=== PATIENT | male | born 1980 | race Hispanic/Latino ===

== ENCOUNTER 2018-09-09 09:02 | Inpatient (IN) | payer BC ==
[2018-09-09] MEDS ORDERED: Lidocaine 1% w/Epinephrine 1:100K 20 ML VIAL ONE ×2 (10:25→10:30)
[2018-09-09] MEDS ORDERED: Clindamycin/D5W 900 mg/50 ml Premix Bag ONE (10:30)
[2018-09-09 11:04] LABS: #Eosinphils 0.1 thou/uL (0.0-0.7); #Lymphocytes 1.5 thou/uL (1.20-3.40); #Monocytes 0.9 thou/uL (0.11-0.59); #Neutrophils 9.6 thou/uL (1.40-6.50); %Basophils 0.3 % (0.0-1.0); %Eosinophils 0.8 % (0.0-10.0); %Lymphocytes 12.5 % (21.0-51.0); %Monocytes 7.3 % (0.0-10.0); %Neutrophils 79.2 % (42.0-75.0); Hemoglobin 10.7 g/dL (14.0-18.0); Mean Corpuscular HGB CONC 32.6 g/dL (32.0-36.0); Mean Corpuscular Hemoglobin 28.3 pg (27.0-31.0); Mean Corpuscular Volume 86.7 fL (78.0-98.0); Mean Platelet Volume 7.3 fL (7.4-10.4); Platelet Count 331 thou/uL (130-400); RBC Distribution Width 11.9 % (11.5-14.5); White Blood Cell (WBC) Count 12.2 thou/uL (4.8-10.8)
[2018-09-09 11:22] LABS: ALT (SGPT) 20 U/L (8-55); AST (SGOT) 11 U/L (5-34); Albumin 2.7 g/dL (3.5-5.0); Alkaline Phosphatase 92 U/L (40-150); Anion Gap 9 mmol/L (10-20); BUN (Urea Nitrogen) 24 mg/dL (8.9-20.6); Bilirubin, Total 0.3 mg/dL (0.2-1.2); Calc. Creatinine Clearance 0 mL/min (70-130); Carbon Dioxide 30 mmol/L (22-29); Chloride 98 mmol/L (98-107); Estimated GFR-MDRD 49; Glucose 376 mg/dL (70-105); Potassium 5.2 mmol/L (3.5-5.1); Protein, Total 6.7 g/dL (6.0-8.3); Sodium 132 mmol/L (136-145)
[2018-09-09] MEDS ORDERED: Sodium Chloride 0.9% 100 ML ONE (13:28)
[2018-09-09] MEDS ORDERED: Piperacillin/Tazobactam 4.5 GM VIAL ONE (13:28)
[2018-09-09] MEDS ORDERED: Labetalol HCl 100 MG/20 ML VIAL ONE (14:04)
[2018-09-09] MEDS ORDERED: Dextrose 50% Abboject 50 ML SYRINGE SLOW IVP PRN (16:31)
[2018-09-09] MEDS ORDERED: Eucerin (Mineral Oil/Petrolatum,White) 30 gm Jar TOP PRN (16:31)
[2018-09-09] MEDS ORDERED: HYDROcodone/Acetaminophen 5/325 mg Tablet PO PRN (16:31)
[2018-09-09] MEDS ORDERED: Bisacodyl 10 MG SUPP PR PRN (16:31)
[2018-09-09] MEDS ORDERED: HumaLOG 300 UNITS/3 ML VIAL SC PRN ×2 (16:31)
[2018-09-09] MEDS ORDERED: Calcium Carbonate 500 MG ChewTAB PO PRN (16:31)
[2018-09-09] MEDS ORDERED: Artificial Tear Sol 15 ML BOT EA EYE PRN (16:31)
[2018-09-09] MEDS ORDERED: hydrALAZINE 20 MG/ML VIAL SLOW IVP PRN (16:31)
[2018-09-09] MEDS ORDERED: Cepastat Lozenges 1 LOZ PO PRN (16:31)
[2018-09-09] MEDS ORDERED: Loratadine 10 MG TAB PO PRN (16:31)
[2018-09-09] MEDS ORDERED: Sodium Chloride 0.65% Nasal 44 ML BOT EA NARE PRN (16:31)
[2018-09-09] MEDS ORDERED: Diabetic Tussin 200 MG/10 ML UDCUP PO PRN (16:31)
[2018-09-09] MEDS ORDERED: Morphine 4 MG/ML VIAL SLOW IVP PRN (16:31)
[2018-09-09] MEDS ORDERED: Ondansetron ODT 4 MG TAB PO PRN (16:31)
[2018-09-09] MEDS ORDERED: Dextrose 5% in Water 1,000 ML IV PRN (16:31)
[2018-09-09] MEDS ORDERED: Zolpidem Tartrate 5 MG TAB PO PRN (16:31)
[2018-09-09] MEDS ORDERED: Ondansetron PF 4 MG/2 ML Vial IVP PRN (16:31)
[2018-09-09] MEDS ORDERED: Loperamide HCl 2 MG CAP PO PRN (16:31)
[2018-09-09] MEDS ORDERED: Senokot S 8.6-50 MG TAB PO PRN (16:31)
--- NOTE | 2018-09-09 17:03 | HP ---
PRIMARY CARE PHYSICIAN: Dr. Collins Restrepo. REASON FOR ADMISSION: Left upper thigh cellulitis with abscess, sepsis, acute kidney injury, uncontrolled diabetes. HISTORY OF PRESENT ILLNESS: A 37-year-old male, who has underlying history of diabetes, who presented to emergency room with left thigh swelling, erythema, fever. The patient reports that four days ago, he noticed little bit bump and lump in that region over left side lateral aspect upper thigh at waistline, which was initially quarter size and gradually gotten worse. The patient tried to squeeze and drain pus by himself, but that was getting bigger and surrounding area was started becoming red, erythematous, indurated, and more swollen. He started having fever. Yesterday, he was not able to finish his work. He has to go home because of throbbing pain. His pain was about 10/10 in intensity. Today, he went to Urgent Care, but because of fever, they did not do I and D and they advised him to go to emergency room. Today, in the emergency room, the patient was febrile with a temperature of 100.2, and he had I and D done in the emergency room. The patient is being admitted for sepsis as well as surrounding cellulitis. The patient reports that he has diabetes history and he was following primary care physician. He was prescribed metformin. He was not tolerating that medication and that is why dose of metformin was reduced and for last one month, the patient was not taking any medication. The patient was also eating junky food and he increased his weight 25 to 30 pounds. The patient reports that he has white coat hypertension. Whenever he goes to doctor's office, his blood pressure remains high, but whenever he checked by himself, his blood pressure remains normal at home. He denies any trauma or insect bite. He denies any previous similar infection in the past. He denies any UTI symptoms. He denies any constipation, diarrhea, melena, or hematochezia. He denies any chest pain, palpitation, or syncope. PAST MEDICAL HISTORY: Obesity, diabetes type 2, white coat hypertension. PAST SURGICAL HISTORY: Knee surgery. PAST PSYCHIATRIC HISTORY: Reviewed and negative. SOCIAL HISTORY: The patient drinks alcohol socially. He denies any smoking. He denies any other illicit drug abuse. He is working in [employer]. FAMILY HISTORY: No family history of coronary artery disease, stroke, or cancer. ALLERGIES: NO KNOWN DRUG ALLERGIES. CURRENT HOME MEDICATIONS: Multivitamin one tablet p.o. daily. REVIEW OF SYSTEMS: CONSTITUTIONAL: Negative for weight loss or gain, ability to conduct usual activities. SKIN: Negative for rash, itching. EYES: Negative for double vision, pain. ENT/MOUTH: Negative for nose bleeding, neck stiffness, pain, tenderness. CARDIOVASCULAR: Negative for palpitations, dyspnea on exertion, orthopnea. RESPIRATORY: Negative for shortness of breath, wheezing, cough, hemoptysis, fever or night sweats. GASTROINTESTINAL: Negative for poor appetite, abdominal pain, heartburn, nausea, vomiting, constipation, or diarrhea. GENITOURINARY: Negative for urgency, frequency, dysuria, nocturia. MUSCULOSKELETAL: Negative for pain, swelling. NEUROLOGIC/PSYCHIATRIC: Negative for anxiety, depression. ALLERGY/IMMUNOLOGIC: Negative for skin rash, bleeding tendency. Please see my HPI for pertinent positive and negative. All other review of systems reviewed and negative except as mentioned in the HPI. EMERGENCY ROOM COURSE: The patient had I and D done. Labetalol 10 mg IV push given, Zosyn 4.5 g, vancomycin 1 g, clindamycin 900 mg given, IV fluid given. PHYSICAL EXAMINATION: VITAL SIGNS: On arrival, blood pressure 158/91, pulse 108, respiratory rate 18, temperature 100.2, saturation 96% on room air. Weight 136.5 kg. GENERAL: The patient is currently alert, awake, febrile, tachycardic. No obvious acute distress. HEENT: Head; normocephalic, atraumatic. Eyes; pupils round, reactive to light. Extraocular muscle intact. ENT; oropharynx within normal limits. Moist mucous membranes. No oral lesion. No pharyngeal erythema. No exudate. NECK: Supple. No JVD. No thyromegaly. No carotid bruit. No jugular venous distention. LUNGS: Clear to auscultation without any rhonchi or rales. CARDIAC: S1, S2 regular. Tachycardia. No murmur. No gallop. No rub. ABDOMEN: Morbid obesity. Bowel sounds present. Nontender, nondistended. No organomegaly. No mass. No suprapubic tenderness. BACK: Unremarkable. No CVA tenderness. EXTREMITIES: Upper extremities; passive movement of all joints is normal. Lower extremities; no edema, good distal pulsation. SKIN: The patient does have large area of cellulitis with central abscess on left lateral hip area, status post I and D. Surrounding induration, warmth, tenderness noted. PSYCHIATRIC: Normal affect. SIGNIFICANT LABORATORY DATA: CBC; WBC 12.2, hemoglobin 10.7, platelet 331. BMP; sodium 132, potassium 5.2, carbon dioxide 30, chloride 98, BUN 24, creatinine 1.60, glucose 376, calcium 9.0. Lactic acid 0.9. LFT: AST 11, ALT 20, alkaline phosphatase 92, albumin 2.7. ASSESSMENT AND PLAN: 1. Cellulitis and abscess, left lateral thigh, status post I and D. The patient has surrounding cellulitis, induration, erythema, tenderness along with acute kidney injury and sepsis criteria with uncontrolled diabetes, will require admission in the hospital for IV antibiotic therapy. We will cover Staphylococcus aureus with vancomycin and gram-negative christal as well as anaerobes with Zosyn. The patient will be given IV fluid and we will monitor clinical response. Wound Care Team will be consulted for wound care over abscess site. 2. Sepsis with systemic inflammatory response syndrome criteria. The patient is having leukocytosis, fever, tachycardia, acute kidney injury. He meets sepsis with acute organ dysfunction criteria from soft tissue infection in the presence of diabetes. The patient is already covered for Staph aureus, gram-negative christal, and anaerobes with vancomycin and Zosyn. We will follow up on culture result and change antibiotic therapy accordingly. 3. Acute kidney failure. The patient will be given IV fluid with NS and we will repeat BMP tomorrow. 4. Mild hyponatremia and hyperkalemia, likely due to renal failure and pseudohyponatremia. We will repeat BMP tomorrow. 5. Anemia, normocytic, normochromic. The patient will be given ferrous sulfate 325 mg p.o. daily and multivitamin one tablet p.o. daily. 6. Morbid obesity. Dietary education given, weight loss education given. Healthy lifestyle measure discussed with the patient. 7. Diabetes, type 2. We will start insulin as per sliding scale protocol. We will start glyburide 5 mg p.o. daily. Diabetic diet will be given. 8. Hypertension. Once renal function improves, then we will monitor the patient's blood pressure and we will start lisinopril. Upon discharge, pain control, morphine p.r.n. basis, [place] p.r.n. basis. 9. Deep venous thrombosis prophylaxis, Lovenox 40 mg subcu daily. 10. Gastrointestinal prophylaxis, Pepcid 20 mg p.o. b.i.d. CODE STATUS: The patient is full code. The patient does not have any surrogate decision maker. DISPOSITION PLAN: Based on clinical course, we are expecting the patient's stay in hospital more than two midnights. Plan of care discussed with the patient in detail. Job ID: [id number]
[2018-09-09 17:51] VITALS: BMI 40.6
[2018-09-09] MEDS: Sodium Chloride 0.9% 1,000 ML IV SCH (18:01)
[2018-09-09] MEDS: Piperacillin/Tazobactam 3.375 GM in Sodium Chloride 0.9% 100 ML IVPB SCH (20:48)
[2018-09-09] MEDS: Famotidine 20 MG TAB PO SCH (20:49)
[2018-09-09 21:16] LABS: Bilirubin Negative (Negative); Blood, Urine Large (Negative); Clarity CLEAR (Clear); Glucose, Urine (Dipstick) >=1000 mg/dL (Negative); Leukocyte Negative (Negative); Nitrite Negative (Negative); Protein, Urine (Dipstick) > or equal to 300 mg/dL (Neg-Trace); Specific Gravity, Urine 1.025 (1.002-1.036); Urobilinogen 0.2 mg/dL (0.2-1.0)
[2018-09-09 21:18] LABS: Bacteria/HPF None Seen HPF (None Seen); Hyaline Casts/LPF 4-6 HYALINE CAST LPF (0-3 Hyaline); Pathc Cast-AUWi Flag 1.01 (0-2.49); RBC/HPF GREATER THAN 50-TNTC HPF (0-3); WBC/HPF 0-3 HPF (0-3)
[2018-09-09] MEDS: Acetaminophen 325 MG TAB PO PRN (22:52)
[2018-09-10] MEDS: Piperacillin/Tazobactam 3.375 GM in Sodium Chloride 0.9% 100 ML IVPB SCH ×4 (03:27→20:00)
[2018-09-10] MEDS: Sodium Chloride 0.9% 1,000 ML IV SCH (03:28)
[2018-09-10 05:41] LABS: #Basophils 0.1 thou/uL (0.0-0.2); #Eosinphils 0.2 thou/uL (0.0-0.7); #Monocytes 0.9 thou/uL (0.11-0.59); #Neutrophils 7.1 thou/uL (1.40-6.50); %Basophils 0.7 % (0.0-1.0); %Eosinophils 1.9 % (0.0-10.0); %Lymphocytes 19.4 % (21.0-51.0); %Neutrophils 69.2 % (42.0-75.0); Hemoglobin 9.6 g/dL (14.0-18.0); Mean Corpuscular HGB CONC 32.4 g/dL (32.0-36.0); Mean Corpuscular Hemoglobin 28.4 pg (27.0-31.0); Mean Corpuscular Volume 87.8 fL (78.0-98.0); Mean Platelet Volume 7.2 fL (7.4-10.4); Platelet Count 308 thou/uL (130-400); Red Blood Cell (RBC) Count 3.36 mill/uL (4.70-6.10); White Blood Cell (WBC) Count 10.3 thou/uL (4.8-10.8)
[2018-09-10 05:48] LABS: Anion Gap 10 mmol/L (10-20); BUN (Urea Nitrogen) 25 mg/dL (8.9-20.6); CRP (Inflammatory) 12.12 mg/dL (= or < 0.5); Calc. Creatinine Clearance 116 mL/min (70-130); Calcium 8.1 mg/dL (7.8-10.44); Carbon Dioxide 27 mmol/L (22-29); Chloride 101 mmol/L (98-107); Estimated GFR-MDRD 46; Glucose 298 mg/dL (70-105); Potassium 4.9 mmol/L (3.5-5.1); Sodium 133 mmol/L (136-145)
[2018-09-10 05:52] LABS: Hemoglobin A1c 14.4 % (4.0-6.0)
[2018-09-10 08:09] LABS: Creatinine, Urine 102.03 mg/dL (63-166)
[2018-09-10] MEDS: Saccharomyces boulardii 250 MG CAP PO SCH (08:37)
[2018-09-10] MEDS: Multivitamin W/ Minerals 1 TAB PO SCH (08:38)
[2018-09-10] MEDS: Famotidine 20 MG TAB PO SCH ×2 (08:38→20:00)
[2018-09-10] MEDS: glyBURIDE 5 MG TAB PO SCH (08:38)
[2018-09-10] MEDS: Ferrous Sulfate 325 MG TAB PO SCH (08:38)
[2018-09-10] MEDS: Enoxaparin Sodium 40 MG/0.4 ML SYRINGE SC SCH (08:40)
--- NOTE | 2018-09-10 09:56 | PDOC.PN ---
- Subjective Encounter Start Date: 09/10/18 Encounter Start Time: 07:50 Patient seen and examined. No new complaints. No overnight events - Objective Resuscitation Status - Order Detail: 09/09/18 14:40 Resuscitation Status Routine Resuscitation Status: FULL: Full Resuscitation MAR Reviewed: Yes Vital Signs & Weight: Vital Signs (12 hours) Temp Pulse Resp BP Pulse Ox 09/10/18 08:39 99.3 F 88 18 135/88 98 09/10/18 08:00 98 09/10/18 05:19 98.8 F 90 20 129/81 98 09/10/18 00:00 99.0 F 92 20 129/81 97 Weight Weight 300 lb I&O: 09/09/18 09/10/18 09/11/18 06:59 06:59 06:59 Intake Total 2039 Balance 2039 Result Diagrams: 09/10/18 04:41 09/10/18 04:41 Additional Labs: Accuchecks 09/10/18 09/09/18 05:18 20:32 POC Glucose 274 H 316 H Phys Exam - Physical Examination Constitutional: NAD HEENT: PERRLA, moist MMs, sclera anicteric Neck: no JVD, supple Respiratory: no wheezing, no rales, no rhonchi Cardiovascular: RRR, no significant murmur, no rub Gastrointestinal: soft, non-tender, no distention, positive bowel sounds Musculoskeletal: no edema, pulses present abscess and cellulitis improving Neurological: non-focal, normal sensation Lymphatic: no nodes Psychiatric: normal affect, A&O x 3 Skin: no rash, normal turgor Dx/Plan (1) Cellulitis and abscess of other specified site Code(s): L03.818 - CELLULITIS OF OTHER SITES; L02.818 - CUTANEOUS ABSCESS OF OTHER SITES Status: Acute (2) Sepsis Code(s): A41.9 - SEPSIS, UNSPECIFIED ORGANISM Status: Acute (3) Anemia, normocytic normochromic Code(s): D64.9 - ANEMIA, UNSPECIFIED Status: Chronic (4) CKD (chronic kidney disease) stage 3, GFR 30-59 ml/min Code(s): N18.3 - CHRONIC KIDNEY DISEASE, STAGE 3 (MODERATE) Status: Chronic (5) Diabetes type 2, uncontrolled Code(s): E11.65 - TYPE 2 DIABETES MELLITUS WITH HYPERGLYCEMIA Status: Chronic (6) Dyslipidemia Code(s): E78.5 - HYPERLIPIDEMIA, UNSPECIFIED Status: Chronic (7) Hypertension Code(s): I10 - ESSENTIAL (PRIMARY) HYPERTENSION Status: Chronic (8) Morbid obesity with BMI of 40.0-44.9, adult Code(s): E66.01 - MORBID (SEVERE) OBESITY DUE TO EXCESS CALORIES; Z68.41 - BODY MASS INDEX (BMI) 40.0-44.9, ADULT Status: Chronic (9) Diabetic nephropathy Status: Acute (10) Nephrotic syndrome Code(s): N04.9 - NEPHROTIC SYNDROME WITH UNSPECIFIED MORPHOLOGIC CHANGES Status: Acute - Plan cont current plan of care, continue antibiotics * continue current treatment * continue vancomycin and zosyn * medication reviewed as below * symptomatic treatment * follow culture * consult dietary * I have educated about diabetes, diet. Review of Systems - Review of Systems ENT: negative: Ear Pain, Ear Discharge, Nose Pain, Nose Discharge, Nose Congestion, Mouth Pain, Mouth Swelling, Throat Pain, Throat Swelling, Other Respiratory: negative: Cough, Dry, Shortness of Breath, Hemoptysis, SOB with Excertion, Pleuritic Pain, Sputum, Wheezing Cardiovascular: negative: chest pain, palpitations, orthopnea, paroxysmal nocturnal dyspnea, edema, light headedness, other Gastrointestinal: negative: Nausea, Vomiting, Abdominal Pain, Diarrhea, Constipation, Melena, Hematochezia, Other Genitourinary: negative: Dysuria, Frequency, Incontinence, Hematuria, Retention , Other Musculoskeletal: negative: Neck Pain, Shoulder Pain, Arm Pain, Back Pain, Hand Pain, Leg Pain, Foot Pain, Other Skin: negative: Rash, Lesions, Elvin, Bruising, Other - Medications/Allergies Allergies/Adverse Reactions: Allergies Allergy/AdvReac Type Severity Reaction Status Date / Time No Known Drug Allergies Allergy Verified 09/09/18 16:36 Medications: Current Medications Acetaminophen (Tylenol) 650 mg PO Q4H PRN PRN Reason: Headache/Fever/Mild Pain (1-3) Last Admin: 09/09/18 22:52 Dose: 650 mg Hydrocodone Bitart/Acetaminophen ([place] 5/325) 1 tab PO Q4H PRN PRN Reason: Moderate Pain (4-6) Artificial Tears (Tears Renewed 15ml Bottle) 2 drop EA EYE PRN PRN PRN Reason: Dry Eyes Bisacodyl (Dulcolax) 10 mg [place] DAILYPRN PRN PRN Reason: Constipation Calcium Carbonate (Tums) 1,000 mg PO Q4H PRN PRN Reason: Heartburn or Indigestion Dextrose/Water (Dextrose 50%) 25 gm SLOW IVP PRN PRN PRN Reason: Hypoglycemia Enoxaparin Sodium (Lovenox) 40 mg SC 0900 [facility] Last Admin: 09/10/18 08:40 Dose: 40 mg Famotidine (Pepcid) 20 mg PO BID [facility] Last Admin: 09/10/18 08:38 Dose: 20 mg Ferrous Sulfate (Feosol) 325 mg PO [facility] Last Admin: 09/10/18 08:38 Dose: 325 mg Glucagon (Glucagon) 1 mg IM PRN PRN PRN Reason: Hypoglycemia Glyburide (Diabeta) 5 mg PO [facility] Last Admin: 09/10/18 08:38 Dose: 5 mg Guaifenesin (Robitussin Sf) 200 mg PO Q4H PRN PRN Reason: Cough Hydralazine HCl (Apresoline) 10 mg SLOW IVP Q4H PRN PRN Reason: SBP > 180 and HR < 70 Dextrose/Water (D5w) 1,000 mls @ 0 mls/hr IV .Q0M PRN PRN Reason: Hypoglycemia Piperacillin Sod/Tazobactam (Sod 3.375 gm/ Sodium Chloride) 100 mls @ 200 mls/ hr IVPB 0200,0800,1400,2000 [facility] Last Admin: 09/10/18 08:36 Dose: 100 mls Vancomycin HCl 2 gm/ Sodium (Chloride) 500 mls @ 250 mls/hr IVPB 0800,1999 [facility] Last Admin: 09/10/18 08:47 Dose: 500 mls Insulin Human Lispro (Humalog) 0 units SC .AGGRESSIVE SLIDING PRN PRN Reason: Aggressive Correctional Scale Last Admin: 09/10/18 06:21 Dose: 9 unit Insulin Human Lispro (Humalog) 0 units SC .BEDTIME SLIDING SC PRN PRN Reason: Bedtime Correctional Scale Iron/Minerals/Multivitamins (Theragran M) 1 tab PO DAILY [facility] Last Admin: 09/10/18 08:38 Dose: 1 tab Loperamide HCl (Imodium) 2 mg PO PRN PRN PRN Reason: Diarrhea/Loose Stools Loratadine (Claritin) 10 mg PO DAILYPRN PRN PRN Reason: Sinus Symptoms Mineral Oil/White Petrolatum (Eucerin Cream) 0 gm TOP BIDPRN PRN PRN Reason: Dry Skin Miscellaneous Medication (Pharmacy To Dose) 1 each IVPB PRN PRN PRN Reason: Pharmacy to dose Morphine Sulfate (Morphine) 4 mg SLOW IVP Q4H PRN PRN Reason: Pain Ondansetron HCl (Zofran Odt) 4 mg PO Q6H PRN PRN Reason: Nausea/Vomiting Ondansetron HCl (Zofran) 4 mg IVP Q6H PRN PRN Reason: Nausea/Vomiting Saccharomyces Boulardii (Florastor) 250 mg PO DAILY [facility] Last Admin: 09/10/18 08:37 Dose: 250 mg Senna/Docusate Sodium (Senokot S) 2 tab PO BID PRN PRN Reason: Constipation Sodium Chloride ([place] Nasal [place] 0.65%) 0 ml EA NARE QIDPRN PRN PRN Reason: Nasal Congestion Throat Lozenges (Cepastat Lozenges) 1 avi PO Q2H PRN PRN Reason: Sore Throat Zolpidem Tartrate (Ambien) 5 mg PO HSPRN PRN PRN Reason: Insomnia
[2018-09-10] MEDS: Acetaminophen 325 MG TAB PO PRN (20:38)
[2018-09-11] MEDS: Piperacillin/Tazobactam 3.375 GM in Sodium Chloride 0.9% 100 ML IVPB SCH ×4 (01:47→19:47)
[2018-09-11] MEDS: glyBURIDE 5 MG TAB PO SCH (07:40)
[2018-09-11] MEDS: Ferrous Sulfate 325 MG TAB PO SCH (07:41)
[2018-09-11] MEDS: Saccharomyces boulardii 250 MG CAP PO SCH (07:41)
[2018-09-11] MEDS: Multivitamin W/ Minerals 1 TAB PO SCH (07:41)
[2018-09-11] MEDS: Famotidine 20 MG TAB PO SCH ×2 (07:41→19:47)
[2018-09-11] MEDS: Enoxaparin Sodium 40 MG/0.4 ML SYRINGE SC SCH (07:43)
[2018-09-11 08:16] LABS: Vancomycin, Trough 45.2 ug/mL
[2018-09-11] MEDS ORDERED: glyBURIDE 5 MG TAB PO SCH ×2 (09:00→21:00)
[2018-09-11] MEDS ORDERED: Lisinopril 5 MG TAB PO SCH (09:00)
--- NOTE | 2018-09-11 11:23 | PDOC.PN ---
- Subjective Encounter Start Date: 09/11/18 Encounter Start Time: 08:40 Patient seen and examined. No new complaints. No overnight events - Objective Resuscitation Status - Order Detail: 09/09/18 14:40 Resuscitation Status Routine Resuscitation Status: FULL: Full Resuscitation MAR Reviewed: Yes Vital Signs & Weight: Vital Signs (12 hours) Temp Pulse Resp BP BP BP Pulse Ox 09/11/18 09:23 89 155/94 H 09/11/18 08:00 98 09/11/18 07:50 98.1 F 89 19 155/94 H 98 09/11/18 04:57 98.4 F 89 20 134/88 98 09/11/18 00:00 99.0 F 89 20 129/84 94 L Weight Admit Weight 300 lb Weight 300 lb I&O: 09/10/18 09/11/18 09/12/18 06:59 06:59 06:59 Intake Total 2039 Balance 2039 Result Diagrams: 09/10/18 04:41 09/10/18 04:41 Additional Labs: Accuchecks 09/11/18 09/10/18 09/10/18 04:56 20:23 17:06 POC Glucose 78 113 H 67 L 09/10/18 11:43 POC Glucose 193 H Phys Exam - Physical Examination Constitutional: NAD HEENT: PERRLA, moist MMs, sclera anicteric Neck: no JVD, supple Respiratory: no wheezing, no rales, no rhonchi Cardiovascular: RRR, no significant murmur, no rub Gastrointestinal: soft, non-tender, no distention, positive bowel sounds Musculoskeletal: no edema, pulses present Neurological: non-focal, normal sensation, moves all 4 limbs Psychiatric: normal affect, A&O x 3 Skin: normal turgor Deviation from normal: abscess with cellulitis improving, still has indurated skin Dx/Plan (1) Cellulitis and abscess of other specified site Code(s): L03.818 - CELLULITIS OF OTHER SITES; L02.818 - CUTANEOUS ABSCESS OF OTHER SITES Status: Acute (2) Sepsis Code(s): A41.9 - SEPSIS, UNSPECIFIED ORGANISM Status: Acute (3) Anemia, normocytic normochromic Code(s): D64.9 - ANEMIA, UNSPECIFIED Status: Chronic (4) CKD (chronic kidney disease) stage 3, GFR 30-59 ml/min Code(s): N18.3 - CHRONIC KIDNEY DISEASE, STAGE 3 (MODERATE) Status: Chronic (5) Diabetes type 2, uncontrolled Code(s): E11.65 - TYPE 2 DIABETES MELLITUS WITH HYPERGLYCEMIA Status: Chronic (6) Dyslipidemia Code(s): E78.5 - HYPERLIPIDEMIA, UNSPECIFIED Status: Chronic (7) Hypertension Code(s): I10 - ESSENTIAL (PRIMARY) HYPERTENSION Status: Chronic (8) Morbid obesity with BMI of 40.0-44.9, adult Code(s): E66.01 - MORBID (SEVERE) OBESITY DUE TO EXCESS CALORIES; Z68.41 - BODY MASS INDEX (BMI) 40.0-44.9, ADULT Status: Chronic (9) Diabetic nephropathy Status: Acute (10) Nephrotic syndrome Code(s): N04.9 - NEPHROTIC SYNDROME WITH UNSPECIFIED MORPHOLOGIC CHANGES Status: Acute - Plan cont current plan of care, continue antibiotics * add lisinopril * continue vancomycin and zosyn * wound care * pain controlled * increase glyburide 5 mg po bid * medication reviewed as below * symptomatic treatment. Review of Systems - Review of Systems ENT: negative: Ear Pain, Ear Discharge, Nose Pain, Nose Discharge, Nose Congestion, Mouth Pain, Mouth Swelling, Throat Pain, Throat Swelling, Other Respiratory: negative: Cough, Dry, Shortness of Breath, Hemoptysis, SOB with Excertion, Pleuritic Pain, Sputum, Wheezing Cardiovascular: negative: chest pain, palpitations, orthopnea, paroxysmal nocturnal dyspnea, edema, light headedness, other Gastrointestinal: negative: Nausea, Vomiting, Abdominal Pain, Diarrhea, Constipation, Melena, Hematochezia, Other Genitourinary: negative: Dysuria, Frequency, Incontinence, Hematuria, Retention , Other Musculoskeletal: negative: Neck Pain, Shoulder Pain, Arm Pain, Back Pain, Hand Pain, Leg Pain, Foot Pain, Other Skin: negative: Rash, Lesions, Elvin, Bruising, Other - Medications/Allergies Allergies/Adverse Reactions: Allergies Allergy/AdvReac Type Severity Reaction Status Date / Time No Known Drug Allergies Allergy Verified 09/09/18 16:36 Medications: Current Medications Acetaminophen (Tylenol) 650 mg PO Q4H PRN PRN Reason: Headache/Fever/Mild Pain (1-3) Last Admin: 09/10/18 20:38 Dose: 650 mg Hydrocodone Bitart/Acetaminophen ([place] 5/325) 1 tab PO Q4H PRN PRN Reason: Moderate Pain (4-6) Artificial Tears (Tears Renewed 15ml Bottle) 2 drop EA EYE PRN PRN PRN Reason: Dry Eyes Aspirin (Aspirin Chewable) 81 mg PO DAILY [facility] Last Admin: 09/11/18 09:22 Dose: 81 mg Bisacodyl (Dulcolax) 10 mg [place] DAILYPRN PRN PRN Reason: Constipation Calcium Carbonate (Tums) 1,000 mg PO Q4H PRN PRN Reason: Heartburn or Indigestion Dextrose/Water (Dextrose 50%) 25 gm SLOW IVP PRN PRN PRN Reason: Hypoglycemia Enoxaparin Sodium (Lovenox) 40 mg SC 0900 [facility] Last Admin: 09/11/18 07:43 Dose: Not Given Famotidine (Pepcid) 20 mg PO BID [facility] Last Admin: 09/11/18 07:41 Dose: 20 mg Ferrous Sulfate (Feosol) 325 [facility] Last Admin: 09/11/18 07:41 Dose: 325 mg Glucagon (Glucagon) 1 mg IM PRN PRN PRN Reason: Hypoglycemia Glyburide (Diabeta) 5 mg PO BID [facility] Last Admin: 09/11/18 09:06 Dose: Not Given Guaifenesin (Robitussin Sf) 200 mg PO Q4H PRN PRN Reason: Cough Hydralazine HCl (Apresoline) 10 mg SLOW IVP Q4H PRN PRN Reason: SBP > 180 and HR < 70 Dextrose/Water (D5w) 1,000 mls @ 0 mls/hr IV .Q0M PRN PRN Reason: Hypoglycemia Piperacillin Sod/Tazobactam (Sod 3.375 gm/ Sodium Chloride) 100 mls @ 200 mls/ hr IVPB 0200,0800,1400,2000 [facility] Last Admin: 09/11/18 07:37 Dose: 100 mls Vancomycin HCl 2 gm/ Sodium (Chloride) 500 mls @ 250 mls/hr IVPB 2000 [facility] Insulin Human Lispro (Humalog) 0 units SC .AGGRESSIVE SLIDING PRN PRN Reason: Aggressive Correctional Scale Last Admin: 09/10/18 06:21 Dose: 9 unit Insulin Human Lispro (Humalog) 0 units SC .BEDTIME SLIDING SC PRN PRN Reason: Bedtime Correctional Scale Iron/Minerals/Multivitamins (Theragran M) 1 tab PO DAILY [facility] Last Admin: 09/11/18 07:41 Dose: 1 tab Lisinopril (Zestril) 5 mg PO DAILY [facility] Last Admin: 09/11/18 09:23 Dose: 5 mg Loperamide HCl (Imodium) 2 mg PO PRN PRN PRN Reason: Diarrhea/Loose Stools Loratadine (Claritin) 10 mg PO DAILYPRN PRN PRN Reason: Sinus Symptoms Mineral Oil/White Petrolatum (Eucerin Cream) 0 gm TOP BIDPRN PRN PRN Reason: Dry Skin Miscellaneous Medication (Pharmacy To Dose) 1 each IVPB PRN PRN PRN Reason: Pharmacy to dose Morphine Sulfate (Morphine) 4 mg SLOW IVP Q4H PRN PRN Reason: Pain Ondansetron HCl (Zofran Odt) 4 mg PO Q6H PRN PRN Reason: Nausea/Vomiting Ondansetron HCl (Zofran) 4 mg IVP Q6H PRN PRN Reason: Nausea/Vomiting Saccharomyces Boulardii (Florastor) 250 mg PO DAILY [facility] Last Admin: 09/11/18 07:41 Dose: 250 mg Senna/Docusate Sodium (Senokot S) 2 tab PO BID PRN PRN Reason: Constipation Sodium Chloride ([place] Nasal [place] 0.65%) 0 ml EA NARE QIDPRN PRN PRN Reason: Nasal Congestion Throat Lozenges (Cepastat Lozenges) 1 avi PO Q2H PRN PRN Reason: Sore Throat Zolpidem Tartrate (Ambien) 5 mg PO HSPRN PRN PRN Reason: Insomnia
[2018-09-11 19:36] LABS: Vancomycin, Random 31.5 ug/mL (See Comment)
[2018-09-12] MEDS: Piperacillin/Tazobactam 3.375 GM in Sodium Chloride 0.9% 100 ML IVPB SCH (02:27)
[2018-09-12 05:30] LABS: #Basophils 0.1 thou/uL (0.0-0.2); #Eosinphils 0.2 thou/uL (0.0-0.7); #Lymphocytes 2.2 thou/uL (1.20-3.40); #Monocytes 0.7 thou/uL (0.11-0.59); #Neutrophils 5.7 thou/uL (1.40-6.50); %Basophils 0.7 % (0.0-1.0); %Eosinophils 2.1 % (0.0-10.0); %Lymphocytes 24.8 % (21.0-51.0); %Monocytes 8.1 % (0.0-10.0); %Neutrophils 64.3 % (42.0-75.0); Hemoglobin 9.7 g/dL (14.0-18.0); Mean Corpuscular Hemoglobin 29.7 pg (27.0-31.0); Mean Corpuscular Volume 87.4 fL (78.0-98.0); Mean Platelet Volume 6.6 fL (7.4-10.4); Platelet Count 360 thou/uL (130-400); RBC Distribution Width 11.8 % (11.5-14.5); Red Blood Cell (RBC) Count 3.25 mill/uL (4.70-6.10); White Blood Cell (WBC) Count 8.9 thou/uL (4.8-10.8)
[2018-09-12 05:46] LABS: Anion Gap 13 mmol/L (10-20); BUN (Urea Nitrogen) 31 mg/dL (8.9-20.6); Calc. Creatinine Clearance 61 mL/min (70-130); Calcium 8.4 mg/dL (7.8-10.44); Carbon Dioxide 24 mmol/L (22-29); Chloride 105 mmol/L (98-107); Cholesterol 209 mg/dl (< 200 Desired); Estimated GFR-MDRD 22; Glucose 90 mg/dL (70-105); HDL Cholesterol 35 mg/dL (>60 Neg Risk); LDL Cholesterol, Calculated 147 mg/dL; Potassium 4.2 mmol/L (3.5-5.1); Sodium 138 mmol/L (136-145); Triglycerides 134 mg/dL (Less than 150)
[2018-09-12] MEDS ORDERED: Morphine 4 MG/ML VIAL SLOW IVP PRN (07:22)
[2018-09-12] MEDS: Saccharomyces boulardii 250 MG CAP PO SCH (08:37)
[2018-09-12] MEDS: Ferrous Sulfate 325 MG TAB PO SCH (08:38)
[2018-09-12] MEDS: Heparin 5,000 UNITS/ML VIAL SC SCH ×2 (08:38→20:20)
[2018-09-12] MEDS: Multivitamin W/ Minerals 1 TAB PO SCH (08:38)
[2018-09-12] MEDS: Famotidine 20 MG TAB PO SCH (08:38)
[2018-09-12] MEDS: cefTRIAXone\\ROCEPHIN 1 GM in Sodium Chloride 0.9% 100 ML IVPB SCH (08:39)
--- NOTE | 2018-09-12 09:05 | ULT ---
ULTRASOUND RENAL BILATERAL STANDARD: Date: 09/12/18 HISTORY: Acute kidney failure. COMPARISON: None. TECHNIQUE: Real-time Daniels scale and color evaluation of the kidneys and urinary bladder was performed. FINDINGS: Right kidney measures 13.5 x 7.1 x 6.2 cm. Left kidney measures 13.2 x 8.1 x 7.1 cm. No renal mass or hydronephrosis is appreciated. There is nonshadowing of what appears to be a calculus intrapolar lef t kidney measuring 2-3 mm. Pre-void urinary bladder volume is 226 mL. IMPRESSION: 1. Likely a nonobstructive 2-3 mm calculus intrapolar left kidney. 2. No evidence of obstructive uropathy. POS: [facility]
--- NOTE | 2018-09-12 12:44 | PDOC.PN ---
- Subjective Encounter Start Date: 09/12/18 Encounter Start Time: 07:40 Patient seen and examined. No new complaints. No overnight events - Objective Resuscitation Status - Order Detail: 09/09/18 14:40 Resuscitation Status Routine Resuscitation Status: FULL: Full Resuscitation MAR Reviewed: Yes Vital Signs & Weight: Vital Signs (12 hours) Temp Pulse Resp BP BP Pulse Ox 09/12/18 11:00 98.4 F 97 18 164/109 H 96 09/12/18 10:10 171/108 H 09/12/18 08:00 96 09/12/18 07:49 98.6 F 96 18 185/111 H 96 09/12/18 04:10 98.9 F 89 18 166/96 H 95 09/12/18 01:42 98.5 F 87 18 145/90 H 96 Weight Admit Weight 300 lb Weight 300 lb Result Diagrams: 09/12/18 05:14 09/12/18 05:14 Additional Labs: Accuchecks 09/12/18 09/12/18 09/11/18 11:29 05:31 19:43 POC Glucose 118 H 97 99 09/11/18 15:55 POC Glucose 98 Phys Exam - Physical Examination Constitutional: NAD HEENT: PERRLA, moist MMs, sclera anicteric Neck: no JVD, supple Respiratory: no wheezing, no rales, no rhonchi Cardiovascular: RRR, no significant murmur, no rub Gastrointestinal: soft, non-tender, no distention, positive bowel sounds Musculoskeletal: no edema, pulses present Neurological: non-focal, normal sensation Lymphatic: no nodes Psychiatric: normal affect Skin: no rash, normal turgor Dx/Plan (1) Cellulitis and abscess of other specified site Code(s): L03.818 - CELLULITIS OF OTHER SITES; L02.818 - CUTANEOUS ABSCESS OF OTHER SITES Status: Acute (2) Sepsis Code(s): A41.9 - SEPSIS, UNSPECIFIED ORGANISM Status: Acute (3) Anemia, normocytic normochromic Code(s): D64.9 - ANEMIA, UNSPECIFIED Status: Chronic (4) CKD (chronic kidney disease) stage 3, GFR 30-59 ml/min Code(s): N18.3 - CHRONIC KIDNEY DISEASE, STAGE 3 (MODERATE) Status: Chronic (5) Diabetes type 2, uncontrolled Code(s): E11.65 - TYPE 2 DIABETES MELLITUS WITH HYPERGLYCEMIA Status: Chronic (6) Dyslipidemia Code(s): E78.5 - HYPERLIPIDEMIA, UNSPECIFIED Status: Chronic (7) Hypertension Code(s): I10 - ESSENTIAL (PRIMARY) HYPERTENSION Status: Chronic (8) Morbid obesity with BMI of 40.0-44.9, adult Code(s): E66.01 - MORBID (SEVERE) OBESITY DUE TO EXCESS CALORIES; Z68.41 - BODY MASS INDEX (BMI) 40.0-44.9, ADULT Status: Chronic (9) Diabetic nephropathy Status: Acute (10) Nephrotic syndrome Code(s): N04.9 - NEPHROTIC SYNDROME WITH UNSPECIFIED MORPHOLOGIC CHANGES Status: Acute (11) Acute worsening of stage 3 chronic kidney disease Code(s): N18.3 - CHRONIC KIDNEY DISEASE, STAGE 3 (MODERATE) Status: Acute - Plan cont current plan of care, continue antibiotics * medication reviewed as below * symptomatic treatment * get US kidney * consult nephrology * continue IV antibiotics * wound care * Consult ID. Review of Systems - Review of Systems ENT: negative: Ear Pain, Ear Discharge, Nose Pain, Nose Discharge, Nose Congestion, Mouth Pain, Mouth Swelling, Throat Pain, Throat Swelling, Other Respiratory: negative: Cough, Dry, Shortness of Breath, Hemoptysis, SOB with Excertion, Pleuritic Pain, Sputum, Wheezing Cardiovascular: negative: chest pain, palpitations, orthopnea, paroxysmal nocturnal dyspnea, edema, light headedness, other Gastrointestinal: negative: Nausea, Vomiting, Abdominal Pain, Diarrhea, Constipation, Melena, Hematochezia, Other Genitourinary: negative: Dysuria, Frequency, Incontinence, Hematuria, Retention , Other Musculoskeletal: negative: Neck Pain, Shoulder Pain, Arm Pain, Back Pain, Hand Pain, Leg Pain, Foot Pain, Other Skin: negative: Rash, Lesions, Elvin, Bruising, Other - Medications/Allergies Allergies/Adverse Reactions: Allergies Allergy/AdvReac Type Severity Reaction Status Date / Time No Known Drug Allergies Allergy Verified 09/09/18 16:36 Medications: Current Medications Acetaminophen (Tylenol) 650 mg PO Q4H PRN PRN Reason: Headache/Fever/Mild Pain (1-3) Last Admin: 09/10/18 20:38 Dose: 650 mg Hydrocodone Bitart/Acetaminophen ([place] 5/325) 1 tab PO Q4H PRN PRN Reason: Moderate Pain (4-6) Artificial Tears (Tears Renewed 15ml Bottle) 2 drop EA EYE PRN PRN PRN Reason: Dry Eyes Aspirin (Aspirin Chewable) 81 mg PO DAILY [facility] Last Admin: 09/12/18 08:38 Dose: 81 mg Atorvastatin Calcium (Lipitor) 20 mg PO HS [facility] Bisacodyl (Dulcolax) 10 mg [place] DAILYPRN PRN PRN Reason: Constipation Calcium Carbonate (Tums) 1,000 mg PO Q4H PRN PRN Reason: Heartburn or Indigestion Dextrose/Water (Dextrose 50%) 25 gm SLOW IVP PRN PRN PRN Reason: Hypoglycemia Famotidine (Pepcid) 20 mg PO DAILY [facility] Last Admin: 09/12/18 08:38 Dose: 20 mg Ferrous Sulfate (Feosol) 325 mg PO QAM-[facility] Last Admin: 09/12/18 08:38 Dose: 325 mg Glucagon (Glucagon) 1 mg IM PRN PRN PRN Reason: Hypoglycemia Guaifenesin (Robitussin Sf) 200 mg PO Q4H PRN PRN Reason: Cough Heparin Sodium (Porcine) (Heparin) 5,000 units SC BID [facility] Last Admin: 09/12/18 08:38 Dose: Not Given Hydralazine HCl (Apresoline) 10 mg SLOW IVP Q4H PRN PRN Reason: SBP > 180 and HR < 70 Last Admin: 09/11/18 22:01 Dose: 10 mg Dextrose/Water (D5w) 1,000 mls @ 0 mls/hr IV .Q0M PRN PRN Reason: Hypoglycemia Ceftriaxone Sodium 1 gm/ (Sodium Chloride) 100 mls @ 200 mls/hr IVPB Q24HR [facility] Last Admin: 09/12/18 08:39 Dose: 100 mls Insulin Human Lispro (Humalog) 0 units SC .AGGRESSIVE SLIDING PRN PRN Reason: Aggressive Correctional Scale Last Admin: 09/10/18 06:21 Dose: 9 unit Insulin Human Lispro (Humalog) 0 units SC .BEDTIME SLIDING SC PRN PRN Reason: Bedtime Correctional Scale Iron/Minerals/Multivitamins (Theragran M) 1 tab PO DAILY [facility] Last Admin: 09/12/18 08:38 Dose: 1 tab Loperamide HCl (Imodium) 2 mg PO PRN PRN PRN Reason: Diarrhea/Loose Stools Loratadine (Claritin) 10 mg PO DAILYPRN PRN PRN Reason: Sinus Symptoms Mineral Oil/White Petrolatum (Eucerin Cream) 0 gm TOP BIDPRN PRN PRN Reason: Dry Skin Morphine Sulfate (Morphine) 2 mg SLOW IVP Q4H PRN PRN Reason: Severe Pain (7-10) Ondansetron HCl (Zofran Odt) 4 mg PO Q6H PRN PRN Reason: Nausea/Vomiting Ondansetron HCl (Zofran) 4 mg IVP Q6H PRN PRN Reason: Nausea/Vomiting Saccharomyces Boulardii (Florastor) 250 mg PO DAILY [facility] Last Admin: 09/12/18 08:37 Dose: 250 mg Senna/Docusate Sodium (Senokot S) 2 tab PO BID PRN PRN Reason: Constipation Sodium Chloride ([place] Nasal [place] 0.65%) 0 ml EA NARE QIDPRN PRN PRN Reason: Nasal Congestion Throat Lozenges (Cepastat Lozenges) 1 avi PO Q2H PRN PRN Reason: Sore Throat Zolpidem Tartrate (Ambien) 5 mg PO HSPRN PRN PRN Reason: Insomnia
[2018-09-12] MEDS ORDERED: Amlodipine 10 MG TAB PO SCH (16:30)
[2018-09-12 18:47] LABS: Creatinine, Urine 78.55 mg/dL (63-166)
[2018-09-12] MEDS: Atorvastatin Calcium 20 MG TAB PO SCH (20:20)
--- NOTE | 2018-09-13 01:27 | CON ---
DATE OF CONSULTATION: CONSULTING PHYSICIAN: Radha Winter MD REQUESTING PHYSICIAN: Dr. Chadwick. REASON FOR CONSULTATION: Acute kidney injury. IMPRESSION: 1. Acute on chronic kidney disease. This is likely in the context of nephrotoxicity from supratherapeutic vancomycin; however, one cannot completely rule out cytokine-mediated injury to come with an infection. 2. Chronic kidney disease stage 3, likely in the context of diabetic nephropathy. 3. Diabetes mellitus, poorly controlled. 4. Obesity. PLAN: 1. Evaluate the degree of proteinuria by checking protein and creatinine. 2. Counseled on the need to stay compliant with medication and to keep blood sugar and blood pressure under control. 3. Renally dose all medications and avoid potentially nephrotoxic agents. 4. Hold vancomycin for now. 5. Further management will be dependent on the clinical course. HISTORY: This is a 37-year-old gentleman with poorly-controlled diabetes, hemoglobin A1c above 14, who presented with left thigh abscess. The patient, on presentation, noted with a creatinine of 1.6. However, a consult through this hospitalization, creatinine has gone up above 3. Clinical evaluation did review supratherapeutic vancomycin level at more than 40. As a result of these findings, decision has been taken to involve Renal in the management of this case. PAST MEDICAL HISTORY: Significant for type 2 diabetes, hypertension, obesity. SOCIAL HISTORY: Denies alcohol, tobacco, or illicit drug use. FAMILY HISTORY: Family history of kidney disease in a distant aunt. ALLERGIES: NO KNOWN DRUG ALLERGIES. MEDICATION: Reviewed and as documented on [facility]. REVIEW OF SYSTEMS: As documented in the body of history. All the other systems were reviewed and found not to be significantly related to present illness. PHYSICAL EXAMINATION: GENERAL: On examination, the patient was found not to be in any obvious distress. VITAL SIGNS: Noted with the following vital signs; afebrile, temperature 98.3, pulse 92, respiratory rate of 18, O2 saturation of 100% with blood pressure 178/115. HEENT: Examination unremarkable. Moist oral mucosa. No conjunctival injection or icterus. NECK: Supple. CARDIOVASCULAR SYSTEM: First and second heart sounds were heard. RESPIRATORY SYSTEM: Clear to auscultation. DIGESTIVE SYSTEM: Revealed a benign abdomen with positive bowel sounds. EXTREMITIES: No peripheral edema. SKIN EXAMINATION: No new gross rash. LYMPHATICS: No peripheral lymphadenopathy. SUMMARY: A 37-year-old gentleman with poorly-controlled diabetes, who presented here with left thigh abscess/cellulitis, now experiencing acute kidney injury. Thank you for this consultation. We will follow with you. Job ID: [id number]
[2018-09-13 05:15] LABS: #Eosinphils 0.2 thou/uL (0.0-0.7); #Monocytes 0.7 thou/uL (0.11-0.59); #Neutrophils 5.2 thou/uL (1.40-6.50); %Basophils 0.6 % (0.0-1.0); %Eosinophils 1.9 % (0.0-10.0); %Lymphocytes 24.4 % (21.0-51.0); %Monocytes 8.1 % (0.0-10.0); %Neutrophils 65.1 % (42.0-75.0); Hemoglobin 9.5 g/dL (14.0-18.0); Mean Corpuscular HGB CONC 33.7 g/dL (32.0-36.0); Mean Corpuscular Hemoglobin 28.9 pg (27.0-31.0); Mean Corpuscular Volume 85.8 fL (78.0-98.0); Mean Platelet Volume 6.7 fL (7.4-10.4); Platelet Count 360 thou/uL (130-400); RBC Distribution Width 11.6 % (11.5-14.5); Red Blood Cell (RBC) Count 3.29 mill/uL (4.70-6.10)
[2018-09-13 05:22] LABS: Albumin 2.5 g/dL (3.5-5.0); Anion Gap 12 mmol/L (10-20); BUN (Urea Nitrogen) 32 mg/dL (8.9-20.6); BUN/Creatinine Ratio 9.97; Calc. Creatinine Clearance 61 mL/min (70-130); Calcium 8.4 mg/dL (7.8-10.44); Carbon Dioxide 22 mmol/L (22-29); Chloride 106 mmol/L (98-107); Estimated GFR-MDRD 22; Glucose 121 mg/dL (70-105); Phosphorus 5.2 mg/dL (2.3-4.7); Potassium 4.4 mmol/L (3.5-5.1); Sodium 136 mmol/L (136-145)
[2018-09-13] MEDS: cefTRIAXone\\ROCEPHIN 1 GM in Sodium Chloride 0.9% 100 ML IVPB SCH (07:39)
[2018-09-13] MEDS: Famotidine 20 MG TAB PO SCH (07:40)
[2018-09-13] MEDS: Saccharomyces boulardii 250 MG CAP PO SCH (07:40)
[2018-09-13] MEDS: Heparin 5,000 UNITS/ML VIAL SC SCH ×2 (07:40→20:10)
[2018-09-13] MEDS: Ferrous Sulfate 325 MG TAB PO SCH (07:40)
[2018-09-13] MEDS: Multivitamin W/ Minerals 1 TAB PO SCH (07:41)
[2018-09-13] MEDS: Amlodipine 10 MG TAB PO SCH (07:41)
--- NOTE | 2018-09-13 10:24 | PDOC.PN ---
- Subjective Encounter Start Date: 09/13/18 Encounter Start Time: 08:00 Patient seen and examined. No new complaints. No overnight events - Objective Resuscitation Status - Order Detail: 09/09/18 14:40 Resuscitation Status Routine Resuscitation Status: FULL: Full Resuscitation MAR Reviewed: Yes Vital Signs & Weight: Vital Signs (12 hours) Temp Pulse Resp BP BP Pulse Ox 09/13/18 08:00 95 09/13/18 07:57 98.3 F 97 18 163/105 H 95 09/13/18 07:41 89 09/13/18 04:00 98.6 F 89 18 154/97 H 96 09/13/18 00:00 98.5 F 90 20 147/91 H 94 L Weight Admit Weight 300 lb Weight 300 lb I&O: 09/12/18 09/13/18 09/14/18 06:59 06:59 06:59 Intake Total 960 360 Balance 960 360 Result Diagrams: 09/13/18 04:42 09/13/18 04:42 Additional Labs: Accuchecks 09/13/18 09/12/18 09/12/18 04:10 21:18 16:01 POC Glucose 133 H 144 H 118 H 09/12/18 11:29 POC Glucose 118 H Phys Exam - Physical Examination Constitutional: NAD HEENT: PERRLA, moist MMs, sclera anicteric Neck: no JVD, supple Respiratory: no wheezing, no rales, no rhonchi Cardiovascular: RRR, no significant murmur, no rub Gastrointestinal: soft, non-tender, no distention, positive bowel sounds Musculoskeletal: no edema, pulses present Neurological: non-focal, normal sensation Lymphatic: no nodes Psychiatric: normal affect, A&O x 3 Skin: no rash, normal turgor Dx/Plan (1) Cellulitis and abscess of other specified site Code(s): L03.818 - CELLULITIS OF OTHER SITES; L02.818 - CUTANEOUS ABSCESS OF OTHER SITES Status: Acute (2) Sepsis Code(s): A41.9 - SEPSIS, UNSPECIFIED ORGANISM Status: Acute (3) Anemia, normocytic normochromic Code(s): D64.9 - ANEMIA, UNSPECIFIED Status: Chronic (4) CKD (chronic kidney disease) stage 3, GFR 30-59 ml/min Code(s): N18.3 - CHRONIC KIDNEY DISEASE, STAGE 3 (MODERATE) Status: Chronic (5) Diabetes type 2, uncontrolled Code(s): E11.65 - TYPE 2 DIABETES MELLITUS WITH HYPERGLYCEMIA Status: Chronic (6) Dyslipidemia Code(s): E78.5 - HYPERLIPIDEMIA, UNSPECIFIED Status: Chronic (7) Hypertension Code(s): I10 - ESSENTIAL (PRIMARY) HYPERTENSION Status: Chronic (8) Morbid obesity with BMI of 40.0-44.9, adult Code(s): E66.01 - MORBID (SEVERE) OBESITY DUE TO EXCESS CALORIES; Z68.41 - BODY MASS INDEX (BMI) 40.0-44.9, ADULT Status: Chronic (9) Diabetic nephropathy Status: Acute (10) Nephrotic syndrome Code(s): N04.9 - NEPHROTIC SYNDROME WITH UNSPECIFIED MORPHOLOGIC CHANGES Status: Acute (11) Acute worsening of stage 3 chronic kidney disease Code(s): N18.3 - CHRONIC KIDNEY DISEASE, STAGE 3 (MODERATE) Status: Acute - Plan cont current plan of care, plan discussed w/ family, continue antibiotics * monitor renal function * continue IV rocephin * medication reviewed as below * symptomatic treatment * discussed with parents * wound care * pain controlled * ID to see today * nephrology following. Review of Systems - Review of Systems ENT: negative: Ear Pain, Ear Discharge, Nose Pain, Nose Discharge, Nose Congestion, Mouth Pain, Mouth Swelling, Throat Pain, Throat Swelling, Other Respiratory: negative: Cough, Dry, Shortness of Breath, Hemoptysis, SOB with Excertion, Pleuritic Pain, Sputum, Wheezing Cardiovascular: negative: chest pain, palpitations, orthopnea, paroxysmal nocturnal dyspnea, edema, light headedness, other Gastrointestinal: negative: Nausea, Vomiting, Abdominal Pain, Diarrhea, Constipation, Melena, Hematochezia, Other Genitourinary: negative: Dysuria, Frequency, Incontinence, Hematuria, Retention , Other Musculoskeletal: negative: Neck Pain, Shoulder Pain, Arm Pain, Back Pain, Hand Pain, Leg Pain, Foot Pain, Other Skin: negative: Rash, Lesions, Elvin, Bruising, Other - Medications/Allergies Allergies/Adverse Reactions: Allergies Allergy/AdvReac Type Severity Reaction Status Date / Time No Known Drug Allergies Allergy Verified 09/09/18 16:36 Medications: Current Medications Acetaminophen (Tylenol) 650 mg PO Q4H PRN PRN Reason: Headache/Fever/Mild Pain (1-3) Last Admin: 09/10/18 20:38 Dose: 650 mg Hydrocodone Bitart/Acetaminophen ([place] 5/325) 1 tab PO Q4H PRN PRN Reason: Moderate Pain (4-6) Amlodipine Besylate (Norvasc) 10 mg PO DAILY [facility] Last Admin: 09/13/18 07:41 Dose: 10 mg Artificial Tears (Tears Renewed 15ml Bottle) 2 drop EA EYE PRN PRN PRN Reason: Dry Eyes Aspirin (Aspirin Chewable) 81 mg PO DAILY [facility] Last Admin: 09/13/18 07:40 Dose: 81 mg Atorvastatin Calcium (Lipitor) 20 mg PO HS [facility] Last Admin: 09/12/18 20:20 Dose: 20 mg Bisacodyl (Dulcolax) 10 mg [place] DAILYPRN PRN PRN Reason: Constipation Calcium Carbonate (Tums) 1,000 mg PO Q4H PRN PRN Reason: Heartburn or Indigestion Dextrose/Water (Dextrose 50%) 25 gm SLOW IVP PRN PRN PRN Reason: Hypoglycemia Famotidine (Pepcid) 20 mg PO DAILY [facility] Last Admin: 09/13/18 07:40 Dose: 20 mg Ferrous Sulfate (Feosol) 325 mg PO QAM-[facility] Last Admin: 09/13/18 07:40 Dose: 325 mg Glucagon (Glucagon) 1 mg IM PRN PRN PRN Reason: Hypoglycemia Guaifenesin (Robitussin Sf) 200 mg PO Q4H PRN PRN Reason: Cough Heparin Sodium (Porcine) (Heparin) 5,000 units SC BID [facility] Last Admin: 09/13/18 07:40 Dose: 5,000 units Hydralazine HCl (Apresoline) 10 mg SLOW IVP Q4H PRN PRN Reason: SBP > 180 and HR < 70 Last Admin: 09/11/18 22:01 Dose: 10 mg Dextrose/Water (D5w) 1,000 mls @ 0 mls/hr IV .Q0M PRN PRN Reason: Hypoglycemia Ceftriaxone Sodium 1 gm/ (Sodium Chloride) 100 mls @ 200 mls/hr IVPB Q24HR [facility] Last Admin: 09/13/18 07:39 Dose: 100 mls Insulin Human Lispro (Humalog) 0 units SC .AGGRESSIVE SLIDING PRN PRN Reason: Aggressive Correctional Scale Last Admin: 09/10/18 06:21 Dose: 9 unit Insulin Human Lispro (Humalog) 0 units SC .BEDTIME SLIDING SC PRN PRN Reason: Bedtime Correctional Scale Iron/Minerals/Multivitamins (Theragran M) 1 tab PO DAILY [facility] Last Admin: 09/13/18 07:41 Dose: 1 tab Loperamide HCl (Imodium) 2 mg PO PRN PRN PRN Reason: Diarrhea/Loose Stools Loratadine (Claritin) 10 mg PO DAILYPRN PRN PRN Reason: Sinus Symptoms Mineral Oil/White Petrolatum (Eucerin Cream) 0 gm TOP BIDPRN PRN PRN Reason: Dry Skin Morphine Sulfate (Morphine) 2 mg SLOW IVP Q4H PRN PRN Reason: Severe Pain (7-10) Ondansetron HCl (Zofran Odt) 4 mg PO Q6H PRN PRN Reason: Nausea/Vomiting Ondansetron HCl (Zofran) 4 mg IVP Q6H PRN PRN Reason: Nausea/Vomiting Saccharomyces Boulardii (Florastor) 250 mg PO DAILY [facility] Last Admin: 09/13/18 07:40 Dose: 250 mg Senna/Docusate Sodium (Senokot S) 2 tab PO BID PRN PRN Reason: Constipation Sodium Chloride ([place] Nasal [place] 0.65%) 0 ml EA NARE QIDPRN PRN PRN Reason: Nasal Congestion Throat Lozenges (Cepastat Lozenges) 1 avi PO Q2H PRN PRN Reason: Sore Throat Zolpidem Tartrate (Ambien) 5 mg PO HSPRN PRN PRN Reason: Insomnia
[2018-09-13] MEDS: Atorvastatin Calcium 20 MG TAB PO SCH (20:10)
--- NOTE | 2018-09-13 21:53 | PRG ---
DATE OF SERVICE: 09/13/2018 SUBJECTIVE: The patient is seen and examined. No new complaints. Noted with the following vital signs. OBJECTIVE: VITAL SIGNS: Afebrile, temperature 98.7, pulse 90, respiratory rate of 18, O2 sats of 99%, and blood pressure 143/86. HEENT EXAMINATION: Unremarkable. CARDIOVASCULAR SYSTEM: First and second heart sounds were heard. RESPIRATORY SYSTEM: Clear to auscultation. DIGESTIVE SYSTEM: Revealed an obese abdomen. EXTREMITIES: Showed peripheral edema. NEURO EXAMINATION: Alert and oriented. No lateralizing sign. LABORATORY INVESTIGATION: Showed a creatinine of 3.21. IMPRESSION: 1. Acute on chronic kidney disease, which seems to be plateauing at this point with a creatinine of 3.21. 2. Nephrotic range proteinuria likely in the context of type 2 diabetes. 3. Diabetes mellitus type 2. 4. Hypertension. 5. Sepsis/cellulitis. PLAN: 1. The patient has been counseled on the need for strict blood sugar control. 2. Continue current renal supportive measures. 3. Outpatient Nephrology followup status post discharge strongly recommended. Job ID: [id number]
--- NOTE | 2018-09-14 02:12 | CON ---
DATE OF CONSULTATION: 09/12/2018 REASON FOR CONSULTATION: Abscess, cellulitis. HISTORY OF PRESENT ILLNESS: A 37-year-old patient with history of type 2 diabetes, obesity, and hypertension, who developed a left lower abdomen and gluteal area of erythema, swelling, and pain for 4 days before admission, which started as a small little nodule. This worsened in size. He tried to squeeze it without success and then it spread. He developed fever and became tired, could not finish work and ended up in an Urgent Care, and then he was sent to the emergency room, had limited I and D in the emergency room and admitted for possible sepsis. No headaches, visual symptoms, sore throat, odynophagia, or dysphagia. No cough or sputum production or chest pain. No back pain. No genitourinary symptoms. No diarrhea. No joint symptoms. No neurological symptoms. PAST MEDICAL HISTORY: Obesity, type 2 diabetes. PAST SURGICAL HISTORY: Arthroscopy of knee. SOCIAL HISTORY: Never smoker. 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 FAMILY HISTORY: Noncontributory. ALLERGIES: NONE. CURRENT MEDICATIONS: Include: 1. Tylenol. 2. [place]. 3. Norvasc. 4. Aspirin. 5. Lipitor. 6. Dulcolax. 7. Ceftriaxone. 8. Glucagon. 9. Robitussin. 10. Insulin. 11. Loperamide. 12. Ondansetron. 13. Ambien. PHYSICAL EXAMINATION: VITAL SIGNS: T-max 100.5. He has been afebrile for the past 24 hours, BP 140/90, pulse 90, respirations 20, and O2 sat 94%. GENERAL: Appears in no distress. SKIN: With an area of erythema localized at the lower flank, abdominal area of lateral aspect. This area has a central ulceration, which measures about 4 cm in diameter. There is necrotic tissue at the base with a leak packed inside. Surrounding it, there is a somewhat macerated borders with mild pink erythema, which has a margin of about 15 cm. HEENT: Noncontributory. NECK: Supple. No lymphadenopathy. LUNGS: Symmetric. Clear breath sounds. HEART: S1 and S2. Regular rate and rhythm. There is no S3 or S4. ABDOMEN: Soft, not distended or tender. No bladder distention. No organomegaly. EXTREMITIES: No joint inflammatory activity. NEURO: Nonfocal. LABORATORY DATA: White cell count is 12.2 now down to 8, hemoglobin 10, platelets 331, neutrophil percentage 79% down to 65%. Chemistry with creatinine originally at 1.6 and now 3.2 after admission. Potassium 4.4, phosphorus 5.2, CRP 4, albumin 2.5. Urinalysis, greater than 50 rbc's and wbc's 0 to 3, protein greater than 300. The patient had been on vancomycin initially and this has been discontinued. Microbiology with group B strep isolated from the abdominal abscess culture. Blood culture, no growth at 48 hours. Had kidney ultrasound, which showed no obstruction and 2 to 3 mm calculus, left kidney. The measurements were normal. ASSESSMENT: 1. Obesity. 2. Type 2 diabetes. 3. Hypertension. 4. Abscess secondary to group B strep of left abdominal wall inferior aspect close to the gluteal region, left side. 5. Acute renal failure, possibly superimposed on chronic. This is likely hemodynamically mediated associated with acute infection and sepsis. DISCUSSION: Continue Rocephin, volume supplementation. Possibility of an underlying vasculitis is probably less likely. Drug-induced interstitial nephritis or other form of nephrotoxicity is less likely since he received only few doses of vancomycin and Zosyn. Vancomycin and Zosyn combination have been associated with renal toxicity in the past, but this association has been called into question lately. Eventually, our goal will be to transition the patient to oral Keflex for discharge plan and monitor his further clinical improvement. Job ID: [id number] [facility]
[2018-09-14] MEDS: Ferrous Sulfate 325 MG TAB PO SCH (07:53)
[2018-09-14] MEDS: Amlodipine 10 MG TAB PO SCH (07:53)
[2018-09-14] MEDS: Saccharomyces boulardii 250 MG CAP PO SCH (07:54)
[2018-09-14] MEDS: Multivitamin W/ Minerals 1 TAB PO SCH (07:54)
[2018-09-14] MEDS: cefTRIAXone\\ROCEPHIN 1 GM in Sodium Chloride 0.9% 100 ML IVPB SCH ×2 (07:54→08:24)
[2018-09-14] MEDS: Famotidine 20 MG TAB PO SCH (07:54)
[2018-09-14] MEDS: Heparin 5,000 UNITS/ML VIAL SC SCH (07:54)
[2018-09-14] MEDS ORDERED: Lisinopril 5 MG TAB PO SCH (09:00)
[2018-09-14 10:21] VITALS: BP 164/103; TEMP 98
--- NOTE | 2018-09-14 11:10 | DIS ---
DATE OF ADMISSION: 09/09/2018 DATE OF DISCHARGE: 09/14/2018 PRIMARY CARE PHYSICIAN: Dr. Collins Restrepo. DISCHARGE DISPOSITION: Home. PRIMARY DISCHARGE DIAGNOSES: 1. Acute on chronic kidney failure, baseline chronic kidney disease stage 3. 2. Diabetic nephropathy with the nephrotic syndrome. 3. Cellulitis and abscess over left lateral thigh, status post incision and drainage due to Streptococcus. 4. Sepsis due to Streptococcus. SECONDARY DISCHARGE DIAGNOSES: 1. Morbid obesity with body mass index 40. 2. Hypertension. 3. Dyslipidemia. 4. Diabetes type 2. 5. Medication and dietary noncompliance. 6. Chronic kidney disease stage 3. 7. Normocytic normochromic anemia. PRIMARY PROCEDURE/OPERATION: None except I and D was performed in the emergency room. RADIOLOGICAL INVESTIGATION: Renal ultrasound was unremarkable. SIGNIFICANT LABS: WBC 8.0, hemoglobin 9.5, platelets 360. Sodium 136, potassium 4.4, BUN 32, creatinine 3.21, calcium 8.4, phosphorus 5.2, CRP 4.0, albumin 2.5. LDL 147. Urinalysis suggestive of proteinuria, glycosuria. Urine protein creatinine ratio consistent with nephrotic range proteinuria. Blood culture negative. Wound culture grew Streptococcus. DISCHARGE MEDICATIONS: 1. Amlodipine 10 mg p.o. daily. 2. Aspirin 81 mg daily. 3. Lipitor 20 mg p.o. at bedtime. 4. Keflex 500 mg p.o. twice daily for 10 days. 5. Florastor 250 mg p.o. daily for 10 days. 6. Lisinopril 5 mg p.o. daily. 7. Glyburide 2.5 mg p.o. daily. 8. Ferrous sulfate 325 mg p.o. daily. 9. Pepcid 20 mg p.o. daily. 10. Tums 500 mg p.o. b.i.d. CONTRAINDICATION: None. CODE STATUS: Full code. INPATIENT ENVIRONMENTAL SERVICES ATTENDANT: Dr. Munroe was consulted while in hospital. Dr. Garcia, quality assurance group leader, was following while in hospital. TEST RESULTS PENDING ON DISCHARGE: None. ALLERGIES: NO KNOWN DRUG ALLERGIES. DISCHARGE PLAN: Post hospital, the patient will follow up with Dr. Garcia, next week. The patient will make appointment with primary care physician. HOSPITAL COURSE: A 38-year-old male, who has long history of diabetes, but he was not taking any medication and he was noncompliant with the diet. He gained significant amount of weight and he was also hypertensive. This time, he came to emergency room because he had a boil on the left lateral aspect of thigh, which required I and D in the emergency room. He was meeting sepsis criteria. His diabetes was not well controlled and that is why, we kept in hospital. He had acute on chronic kidney failure while in the hospital. We have treated him with vancomycin, Zosyn initially and subsequently based on culture result, we changed the antibiotic therapy to Rocephin. Upon discharge, we changed to Keflex. This patient is educated about wound care and his surrounding cellulitis significantly improved. Dr. Munroe was consulted while in hospital and he agreed with changing to oral Keflex upon discharge. Regarding diabetes related kidney disease, we found that he has nephrotic syndrome and diabetic nephropathy and that is why, Dr. Garcia was following. Renal ultrasound was unremarkable. We started lisinopril for renal protection. We also started amlodipine for his hypertension. We started Lipitor for his cholesterol. Dietary education given. Basketball Player was consulted while in hospital. Healthy lifestyle measure discussed with the patient. Weight loss education given. This patient will follow up with Dr. Garcia in next week and he will continue antibiotic therapy as prescribed. All new medication prescription sent to his pharmacy. The patient is seen and examined at bedside today. REVIEW OF SYSTEMS: All review of system reviewed with him and negative. PHYSICAL EXAMINATION: VITAL SIGNS: Currently, temperature 98.4, pulse 97, respiratory rate 18, saturation 94% on room air, blood pressure 163/103, weight 300 pounds. GENERAL: The patient is currently alert, awake, in no obvious acute distress. HEENT: Head; normocephalic, atraumatic. Eyes; pupils round, reactive to light. Extraocular muscle intact. ENT; oropharynx within normal limits. Moist mucous membranes. No oral lesion. No pharyngeal erythema. No exudate. NECK: Supple. No JVD. No thyromegaly. No carotid bruit. LUNGS: Clear to auscultation without any rhonchi or rales. CARDIAC: S1 and S2 regular without any murmur. ABDOMEN: Soft and benign. EXTREMITIES: No edema. NEUROLOGIC: Nonfocal examination. Overall, patient is medically stable for discharge. The patient's wound over left lateral side is significantly better and surrounding cellulitis improved. Job ID: [id number]
--- NOTE | 2018-09-14 17:42 | PRG ---
DATE OF SERVICE: 09/14/2018 SUBJECTIVE: The patient noted with the following vital signs. OBJECTIVE: VITAL SIGNS: Afebrile, temperature 98, pulse 94, respiratory rate of 18, O2 saturation 97%, blood pressure 161/103. HEENT: Unremarkable. CARDIOVASCULAR SYSTEM: First and second heart sounds were heard. RESPIRATORY SYSTEM: Clear to auscultation. DIGESTIVE SYSTEM: Revealed a benign abdomen. EXTREMITIES: Showed some peripheral edema. SKIN EXAMINATION: No new gross rash. LYMPHATICS: No peripheral lymphadenopathy. LABORATORY INVESTIGATION: None was done today. IMPRESSION: 1. [id number] kidney disease in the context of nephrotoxicity from supratherapeutic vancomycin. 2. Baseline chronic kidney disease in the context of diabetic nephropathy. 3. Nonnephrotic range proteinuria due to diabetic nephropathy. 4. Diabetes mellitus type 2, poorly controlled. 5. Obesity. PLAN: 1. Outpatient Nephrology followup strongly recommended, I would like to see this patient within 2 weeks after discharge. 2. Further management will be dependent on the clinical course. It would be nice to know the renal function of this patient. Job ID: [id number]
== END 2018-09-14 10:15 | disposition home or self-care (01) | DRG 872 ==
LOC: ERS 09:02 → T4-A 16:42
PROVIDERS: ADMIT Internal Medicine; ATTEND Internal Medicine
DX: A40.9 Streptococcal sepsis, unspecified (principal); L03.116 Cellulitis of left lower limb; Z68.41 Body mass index [BMI] 40.0-44.9, adult; N17.9 Acute kidney failure, unspecified; E87.1 Hypo-osmolality and hyponatremia; L02.416 Cutaneous abscess of left lower limb; R65.20 Severe sepsis without septic shock; E11.9 Type 2 diabetes mellitus without complications; Z91.14 Patient's other noncompliance with medication regimen; I10 Essential (primary) hypertension; E87.5 Hyperkalemia; D64.9 Anemia, unspecified; E66.01 Morbid (severe) obesity due to excess calories; I12.9 Hypertensive chronic kidney disease with stage 1 through stage 4 chronic kidney disease, or unspecified chronic kidney disease; E11.22 Type 2 diabetes mellitus with diabetic chronic kidney disease; E11.65 Type 2 diabetes mellitus with hyperglycemia; N18.3 Chronic kidney disease, stage 3 (moderate); E11.21 Type 2 diabetes mellitus with diabetic nephropathy; Z91.11 Patient's noncompliance with dietary regimen
CPT/HCPCS: 10060; 36415; 36416; 76770; 80048; 80053; 80061; 80069; 80202; 81001; 82570; 83036; 83605; 84156; 85025; 86140; 87040; 87070; 87077; 87205; 96361; 96365; 96367; 96375; J0360; J0696; J1644; J1650; J2001; J2543; J3370; J3490; J7050

== ENCOUNTER 2021-08-14 09:11 | Outpatient (CLI) | payer BC ==
[2021-08-14 17:36] LABS: SARS-CoV-2 PCR by NAA Not Detected (NotDetected)
== END 2021-08-14 09:12 | disposition home or self-care (01) ==
LOC: LABBT 09:11
PROVIDERS: ATTEND Ophthalmology Retina Specialist
DX: Z01.812 Encounter for preprocedural laboratory examination (principal); H33.42 Traction detachment of retina, left eye; Z20.822 Contact with and (suspected) exposure to COVID-19
CPT/HCPCS: U0003; U0005

== ENCOUNTER 2021-08-17 06:24 | Day surgery (SDC) | payer BC ==
[2021-08-16 12:31] VITALS: BMI 35.2
[~2021-08-17 06:24] MED LIST: EPINEPHrine 0.3 MG, Dextrose 50% 3 ML in Ophthalmic Irrigation Solution 500 ML IRR SCH; Fentanyl 100 MCG/2 ML VIAL ONE; Midazolam HCl 2 mg/2 ml Vial ONE
[2021-08-17] MEDS ORDERED: Phenylephrine 2.5% Ophth Soln 5 ML BOT ONE (06:59)
[2021-08-17] MEDS ORDERED: Cyclopentolate 1% Opth Drop 2 ML BOT ONE (06:59)
== END 2021-08-17 09:09 | disposition home or self-care (01) ==
LOC: SDC 06:24
PROVIDERS: ATTEND Ophthalmology Retina Specialist
PROC: 08N53ZZ Release Left Vitreous, Percutaneous Approach (ICD-10-PCS; principal; 2021-08-17)
DX: H33.42 Traction detachment of retina, left eye (principal); H43.12 Vitreous hemorrhage, left eye; E11.9 Type 2 diabetes mellitus without complications; Z98.890 Other specified postprocedural states; Z91.013 Allergy to seafood; Z91.041 Radiographic dye allergy status
CPT/HCPCS: J0171; J2250; J3010

== ENCOUNTER 2021-10-23 08:34 | Outpatient (CLI) | payer BC ==
[2021-10-24 16:51] LABS: SARS-CoV-2 PCR by NAA Not Detected (NotDetected)
== END 2021-10-23 08:35 | disposition home or self-care (01) ==
LOC: LABBT 08:34
PROVIDERS: ATTEND Ophthalmology Retina Specialist
DX: Z01.812 Encounter for preprocedural laboratory examination (principal); H33.42 Traction detachment of retina, left eye; Z20.822 Contact with and (suspected) exposure to COVID-19
CPT/HCPCS: U0003; U0005

== ENCOUNTER 2021-10-26 06:36 | Day surgery (SDC) | payer BC ==
[2021-10-17 12:47] VITALS: BMI 34.9
[~2021-10-26 06:36] MED LIST changes: +EPINEPHrine 0.3 MG in Ophthalmic Irrigation Solution 500 ML IRR SCH; -EPINEPHrine 0.3 MG, Dextrose 50% 3 ML in Ophthalmic Irrigation Solution 500 ML IRR SCH; +PROPOFOL 20 ML ONE
[2021-10-26] MEDS ORDERED: Cyclopentolate 1% Opth Drop 2 ML BOT ONE (06:56)
[2021-10-26] MEDS ORDERED: Phenylephrine 2.5% Ophth Soln 5 ML BOT ONE (06:56)
[2021-10-26] MEDS ORDERED: Maxitrol 0.1% Opth Oint 3.5 GM TUBE ONE (07:51)
[2021-10-26] MEDS ORDERED: Bupivacaine PF 0.75% SDV 10 ML ONE (07:51)
[2021-10-26] MEDS ORDERED: Lidocaine 1% PF 5 ML VIAL ONE (07:51)
[2021-10-26] MEDS ORDERED: PROPOFOL 200 MG/20 ML VIAL ONE (07:51)
[2021-10-26] MEDS ORDERED: Lidocaine 4% PF 5 ML AMP ONE (07:51)
[2021-10-26] MEDS ORDERED: CEFAZOLIN 1 GM VIAL ONE (07:51)
[2021-10-26] MEDS ORDERED: Triamcinolone 40 MG/ML VIAL ONE (07:51)
[2021-10-26] MEDS ORDERED: HYDROcodone/Acetaminophen 5/325 mg Tablet ONE (09:55)
== END 2021-10-26 10:34 | disposition home or self-care (01) ==
LOC: SDC 06:36
PROVIDERS: ATTEND Ophthalmology Retina Specialist
PROC: 08QF3ZZ Repair Left Retina, Percutaneous Approach (ICD-10-PCS; principal; 2021-10-26)
PROC: 08T53ZZ Resection of Left Vitreous, Percutaneous Approach (ICD-10-PCS; principal; 2021-10-26)
DX: H33.42 Traction detachment of retina, left eye (principal); Z79.2 Long term (current) use of antibiotics; Z79.82 Long term (current) use of aspirin; Z79.899 Other long term (current) drug therapy; Z91.013 Allergy to seafood; Z91.041 Radiographic dye allergy status
CPT/HCPCS: C1814; J0171; J0690; J2250; J2704; J3010; J3301; J3490

== ENCOUNTER 2022-01-30 10:05 | Outpatient (CLI) | payer BC ==
[2022-01-30 22:45] LABS: SARS-CoV-2 PCR by NAA Not Detected (NotDetected)
== END 2022-01-30 10:06 | disposition home or self-care (01) ==
LOC: LABBT 10:05
PROVIDERS: ATTEND Ophthalmology Retina Specialist
DX: Z20.822 Contact with and (suspected) exposure to COVID-19 (principal)
CPT/HCPCS: U0003; U0005

== ENCOUNTER 2022-02-01 08:12 | Day surgery (SDC) | payer BC ==
[2022-01-30 13:05] VITALS: BMI 35.5
[~2022-02-01 08:12] MED LIST changes: -EPINEPHrine 0.3 MG in Ophthalmic Irrigation Solution 500 ML IRR SCH; +EPINEPHrine 0.3 MG, Dextrose 50% 3 ML in Ophthalmic Irrigation Solution 500 ML IRR SCH; -Fentanyl 100 MCG/2 ML VIAL ONE; -PROPOFOL 20 ML ONE; +fentaNYL Citrate/PF 100 MCG/2 ML SYRINGE ONE
[2022-02-01] MEDS ORDERED: Cyclopentolate 1% Opth Drop 2 ML BOT ONE (09:26)
[2022-02-01] MEDS ORDERED: Phenylephrine 2.5% Ophth Soln 5 ML BOT ONE (09:26)
[2022-02-01] MEDS ORDERED: CEFAZOLIN 1 GM VIAL ONE (11:07)
[2022-02-01] MEDS ORDERED: Dextrose 50% Abboject 50 ML SYRINGE ONE (11:07)
[2022-02-01] MEDS ORDERED: Triamcinolone 40 MG/ML VIAL ONE (11:07)
[2022-02-01] MEDS ORDERED: Bupivacaine 0.75% 10 ML VIAL ONE (11:07)
[2022-02-01] MEDS ORDERED: Lidocaine 1% PF 5 ML VIAL ONE (11:07)
[2022-02-01] MEDS ORDERED: Lidocaine 4% PF 5 ML AMP ONE (11:07)
[2022-02-01] MEDS ORDERED: PROPOFOL 200 MG/20 ML VIAL ONE (11:07)
== END 2022-02-01 13:32 | disposition home or self-care (01) ==
LOC: SDC 08:12
PROVIDERS: ATTEND Ophthalmology Retina Specialist
PROC: 08QE3ZZ Repair Right Retina, Percutaneous Approach (ICD-10-PCS; principal; 2022-02-01)
PROC: 08T43ZZ Resection of Right Vitreous, Percutaneous Approach (ICD-10-PCS; principal; 2022-02-01)
DX: H33.41 Traction detachment of retina, right eye (principal); Z79.2 Long term (current) use of antibiotics; Z79.899 Other long term (current) drug therapy; Z91.041 Radiographic dye allergy status; Z91.013 Allergy to seafood
CPT/HCPCS: C1814; J0171; J0690; J2250; J2704; J3301; J3490; J7999

== ENCOUNTER 2022-04-23 10:36 | Outpatient (CLI) | payer BC | END 2022-04-23 10:37 | disposition home or self-care (01) | LOC: LABBT 10:36 | PROVIDERS: ATTEND Ophthalmology Retina Specialist | DX: Z20.822 Contact with and (suspected) exposure to COVID-19 (principal) | CPT/HCPCS: 87811 ==

== ENCOUNTER 2022-04-26 07:28 | Day surgery (SDC) | payer BC ==
[~2022-04-26 07:28] MED LIST changes: -EPINEPHrine 0.3 MG, Dextrose 50% 3 ML in Ophthalmic Irrigation Solution 500 ML IRR SCH; +Fluorouracil 100 MG, EPINEPHrine 0.3 MG, Dextrose 50% 3 ML in Ophthalmic Irrigation Sol... IRR SCH; -Midazolam HCl 2 mg/2 ml Vial ONE; -fentaNYL Citrate/PF 100 MCG/2 ML SYRINGE ONE
[2022-04-26] MEDS ORDERED: Cyclopentolate 1% Opth Drop 2 ML BOT ONE (07:43)
[2022-04-26] MEDS ORDERED: Phenylephrine 2.5% Ophth Soln 5 ML BOT ONE (07:43)
[2022-04-26 08:44] LABS: Potassium 4.6 mmol/L (3.5-5.1)
[2022-04-26] MEDS ORDERED: Bupivacaine 0.75% 10 ML VIAL ONE (09:19)
[2022-04-26] MEDS ORDERED: Lidocaine 1% PF 5 ML VIAL ONE (09:19)
[2022-04-26] MEDS ORDERED: Dextrose 50% Abboject 50 ML SYRINGE ONE (09:19)
[2022-04-26] MEDS ORDERED: Lidocaine 4% PF 5 ML AMP ONE (09:19)
[2022-04-26] MEDS ORDERED: Maxitrol 0.1% Opth Oint 3.5 GM TUBE ONE (09:19)
[2022-04-26] MEDS ORDERED: Triamcinolone 40 MG/ML VIAL ONE (09:19)
[2022-04-26] MEDS ORDERED: PROPOFOL 200 MG/20 ML VIAL ONE (09:19)
[2022-04-26] MEDS ORDERED: CEFAZOLIN 1 GM VIAL ONE (09:19)
== END 2022-04-26 11:11 | disposition home or self-care (01) ==
LOC: SDC 07:28
PROVIDERS: ATTEND Ophthalmology Retina Specialist
PROC: 08T43ZZ Resection of Right Vitreous, Percutaneous Approach (ICD-10-PCS; principal; 2022-04-26)
PROC: 08NE3ZZ Release Right Retina, Percutaneous Approach (ICD-10-PCS; principal; 2022-04-26)
PROC: 08QE3ZZ Repair Right Retina, Percutaneous Approach (ICD-10-PCS; principal; 2022-04-26)
DX: H33.41 Traction detachment of retina, right eye (principal); E11.22 Type 2 diabetes mellitus with diabetic chronic kidney disease; N18.9 Chronic kidney disease, unspecified; Z79.899 Other long term (current) drug therapy; Z91.013 Allergy to seafood; Z91.041 Radiographic dye allergy status
CPT/HCPCS: 36416; 84132; C1814; J0171; J0690; J2704; J3301; J3490; J7999; J9190

== ENCOUNTER 2022-12-13 06:06 | Day surgery (SDC) | payer BC ==
[2022-12-12 09:52] VITALS: BMI 38.0
[2022-12-13] MEDS ORDERED: Cyclopentolate 1% Opth Drop 2 ML BOT ONE (06:47)
[2022-12-13] MEDS ORDERED: Phenylephrine 2.5% Ophth Soln 5 ML BOT ONE (06:47)
[2022-12-13] MEDS ORDERED: Midazolam HCl 2 mg/2 ml Vial ONE (07:24)
[2022-12-13] MEDS ORDERED: fentaNYL PF 100 MCG/2 ML SYRINGE ONE (07:24)
[2022-12-13] MEDS ORDERED: Maxitrol 0.1% Opth Oint 3.5 GM TUBE ONE (08:13)
[2022-12-13] MEDS ORDERED: Lidocaine 1% PF 5 ML VIAL ONE (08:13)
[2022-12-13] MEDS ORDERED: PROPOFOL 200 MG/20 ML VIAL ONE (08:13)
[2022-12-13] MEDS ORDERED: Lidocaine 4% PF 5 ML AMP ONE (08:13)
[2022-12-13] MEDS ORDERED: CEFAZOLIN 1 GM VIAL ONE (08:13)
[2022-12-13] MEDS ORDERED: Atropine Sulfate 1% Ophth Ointment 3.5 gm Tube ONE (08:13)
[2022-12-13] MEDS ORDERED: Bupivacaine 0.75% 10 ML VIAL ONE (08:13)
[2022-12-13] MEDS ORDERED: Triamcinolone 40 MG/ML VIAL ONE (08:13)
[2022-12-13] MEDS ORDERED: Heparin 1,000 UNITS/ML VIAL ONE (09:33)
== END 2022-12-13 09:46 | disposition home or self-care (01) ==
LOC: SDC 06:06
PROVIDERS: ATTEND Ophthalmology Retina Specialist
PROC: 08QC3ZZ Repair Right Iris, Percutaneous Approach (ICD-10-PCS; principal; 2022-12-13)
DX: H21.541 Posterior synechiae (iris), right eye (principal); N18.9 Chronic kidney disease, unspecified; Z79.899 Other long term (current) drug therapy; Z91.013 Allergy to seafood; Z91.041 Radiographic dye allergy status; Z99.2 Dependence on renal dialysis
CPT/HCPCS: J0690; J1644; J2250; J2704; J3301; J3490

== ENCOUNTER 2023-07-18 07:30 | Day surgery (SDC) | payer BC ==
[2023-07-17 14:20] VITALS: BMI 41.2
[~2023-07-18 07:30] MED LIST changes: +EPINEPHrine 0.3 MG in Ophthalmic Irrigation Solution 500 ML IRR SCH; -Fluorouracil 100 MG, EPINEPHrine 0.3 MG, Dextrose 50% 3 ML in Ophthalmic Irrigation Sol... IRR SCH; +Midazolam HCl 2 mg/2 ml Vial ONE; +fentaNYL 50 mcg/mL 1 mL Vial ONE
[2023-07-18] MEDS ORDERED: PHENYLephrine 2.5% Ophth Soln 15 ml Bottle ONE (07:47)
[2023-07-18] MEDS ORDERED: Cyclopentolate 1% Opth Drop 2 ML BOT ONE (07:47)
[2023-07-18] MEDS ORDERED: Maxitrol 0.1% Opth Oint 3.5 GM TUBE ONE (08:53)
[2023-07-18] MEDS ORDERED: Lidocaine 1% PF 5 ML VIAL ONE (08:53)
[2023-07-18] MEDS ORDERED: Triamcinolone 40 MG/ML VIAL ONE (08:53)
[2023-07-18] MEDS ORDERED: Bupivacaine 0.75% 10 ML VIAL ONE (08:53)
[2023-07-18] MEDS ORDERED: CEFAZOLIN 1 GM VIAL ONE (08:53)
[2023-07-18] MEDS ORDERED: Lidocaine 4% PF 5 ML AMP ONE (08:53)
[2023-07-18] MEDS ORDERED: PROPOFOL 200 MG/20 ML VIAL ONE (08:53)
== END 2023-07-18 10:15 | disposition home or self-care (01) ==
LOC: SDC 07:30
PROVIDERS: ATTEND Ophthalmology Retina Specialist
PROC: 08BD3ZZ Excision of Left Iris, Percutaneous Approach (ICD-10-PCS; principal; 2023-07-18)
DX: H21.42 Pupillary membranes, left eye (principal)
CPT/HCPCS: J0171; J0690; J2250; J2704; J3010; J3301; J3490

== ENCOUNTER 2023-07-25 08:28 | Day surgery (SDC) | payer BC ==
[2023-07-24 13:23] VITALS: BMI 41.2
[~2023-07-25 08:28] MED LIST changes: -EPINEPHrine 0.3 MG in Ophthalmic Irrigation Solution 500 ML IRR SCH; -Midazolam HCl 2 mg/2 ml Vial ONE; +chlorproMAZINE HCl 50 MG/2 ML AMP FS SCH; -fentaNYL 50 mcg/mL 1 mL Vial ONE
[2023-07-25] MEDS ORDERED: PHENYLephrine 2.5% Ophth Soln 15 ml Bottle ONE (08:52)
[2023-07-25] MEDS ORDERED: Cyclopentolate 1% Opth Drop 2 ML BOT ONE (08:53)
[2023-07-25] MEDS ORDERED: Lidocaine 1% PF 5 ML VIAL ONE (09:58)
[2023-07-25] MEDS ORDERED: CEFAZOLIN 1 GM VIAL ONE (09:58)
[2023-07-25] MEDS ORDERED: Bupivacaine 0.75% 10 ML VIAL ONE (09:58)
[2023-07-25] MEDS ORDERED: Maxitrol 0.1% Opth Oint 3.5 GM TUBE ONE (09:58)
[2023-07-25] MEDS ORDERED: Lidocaine 4% PF 5 ML AMP ONE ×2 (09:58)
[2023-07-25] MEDS ORDERED: PROPOFOL 200 MG/20 ML VIAL ONE (09:58)
[2023-07-25] MEDS ORDERED: Midazolam HCl 2 mg/2 ml Vial ONE (10:18)
== END 2023-07-25 11:50 | disposition home or self-care (01) ==
LOC: SDC 08:28
PROVIDERS: ATTEND Ophthalmology Retina Specialist
PROC: 3E0 Administration, Physiological Systems and Anatomical Regions, Introduction (ICD-10-PCS; principal; 2023-07-25)
DX: H44.522 Atrophy of globe, left eye (principal); Z91.041 Radiographic dye allergy status
CPT/HCPCS: J0690; J2250; J2704; J3230; J3490